=== PATIENT | female | born 1940 | race Native Hawaiian/Other Pacific Islander ===

== ENCOUNTER 2018-10-31 22:57 | Outpatient (CLI) | payer BC, OTHER | END 2018-10-31 23:40 | disposition short-term general hospital (02) | LOC: AMB 22:57 | DX: M25.551 Pain in right hip (principal) | CPT/HCPCS: A0425; A0427 ==

== ENCOUNTER 2022-09-15 00:14 | Emergency (ER) | payer BC, OTHER ==
[~2022-09-15] VITALS: Ht 160 cm; Wt 102.1 kg
[2022-09-15 01:45] VITALS: BP 155/63; TEMP 97.9
== END 2022-09-15 01:50 | disposition short-term general hospital (02) ==
LOC: ED 00:14
DX: M24.451 Recurrent dislocation, right hip (principal); M81.8 Other osteoporosis without current pathological fracture
CPT/HCPCS: 99283